=== PATIENT | male | born 1970 | race Caucasian/White ===

== ENCOUNTER 2019-08-31 00:19 | Emergency (ER) | payer OTHER ==
[2019-08-31] MEDS ORDERED: OXYMETAZOLINE 0.05% NASL SPRAY 1 SPRAY BOTTLE NASAL STA (00:31)
[2019-08-31 00:43] VITALS: RESP 18
--- NOTE | 2019-08-31 01:40 | ED ---
General Adult HPI - General Chief complaint: ENT Stated complaint: Nosebleed No Injury Time Seen by Provider: 08/31/19 00:26 Source: patient, family, RN notes reviewed, old records reviewed Mode of arrival: ambulatory Limitations: no limitations - History of Present Illness Initial comments: 48-year-old male patient in [place] complaint epistaxis. Patient reports that he did have rhinitis for the past approximate one week has been blowing his nose a lot. Patient ports that the nosebleed began earlier today, resolved for a short period then returned. Primarily coming out of his right nare. Denies use of blood thinners. Denies any other complaints. Systemic: Pt denies fatigue, fever/chills, rash. Pt denies weakness, night sweats, weight loss. Neuro: Pt denies headache, visual disturbances, syncope or pre-syncope. HEENT: Pt denies ocular discharge or irritation, otalgia, rhinorrhea, pharyngitis or notable lymphadenopathy. Cardiopulmonary: Pt denies chest pain, SOB, heart palpitations, dyspnea on exertion. Abdominal/GI: Pt denies abdominal pain, n/v/d. : Pt denies dysuria, burning w/ urination, frequency/urgency. Denies new onset urinary or bowel incontinence. MSK: Pt denies myalgia, loss of strength or function in extremities. Neuro: Pt denies new onset weakness, paresthesias. - Related Data Allergies Allergy/AdvReac Type Severity Reaction Status Date / Time No Known Allergies Allergy Verified 08/31/19 00:43 Review of Systems ROS Statement: Those systems with pertinent positive or pertinent negative responses have been documented in the HPI. ROS Other: All systems not noted in ROS Statement are negative. Past Medical History Past Medical History: Hyperlipidemia History of Any Multi-Drug Resistant Organisms: None Reported Past Surgical History: No Surgical Hx Reported Past Psychological History: No Psychological Hx Reported Smoking Status: Never smoker Past Alcohol Use History: Daily Past Drug Use History: None Reported General Exam - General Exam Comments Initial Comments: Constitutional: NAD, AOX3, Pt has pleasant affect. HEENT: NC/AT, trachea midline, neck supple, no lymphadenopathy. Posterior pharynx non erythematous, without exudates. External ears appear normal, without discharge. Mucous membranes moist. Eyes PERRLA, EOM intact. There is no scleral icterus. No pallor noted. Anterior epistaxis noted in right FITO. Resolved with Afrin nasal clamp, no active bleeding. No hematoma. Cardiopulmonary: RRR, no murmurs, rubs or gallops, no JVD noted. Lungs CTAB in anterior and posterior alexander. No peripheral edema. Abdominal exam: Abdomen soft and non-distended. Abdomen non-tender to palpation in all 4 quadrants. Bowel sounds active in LLQ. No hepatosplenomegaly. No ecchymosis Neuro: CN II-XII grossly intact. No nuchal rigidity. No raccon eyes, no ruiz sign, no hemotympanum. No cervical spinal tenderness. MSK: No posterior calf tenderness bilaterally, homans sign negative bilaterally. Posterior tibialis and radial pulse +2 bilaterally. Sensation intact in upper and lower extremities. Full active ROM in upper and lower extremities, 5/5 stregnth. Limitations: no limitations Course Vital Signs 08/31/19 08/31/19 08/31/19 00:30 00:53 01:54 Temperature 97.6 F 97.8 F Pulse Rate 91 74 Respiratory 18 18 Rate Blood Pressure 180/116 162/101 153/93 O2 Sat by Pulse 100 98 Oximetry Medical Decision Making - Medical Decision Making 48-year-old male patient with the chief complaint of epistaxis. Patient vital signs stable upon discharge. Physical exam displayed right epistaxis. Resolved with nasal clamp and Afrin. Patient will be discharged with return to ER condition worsens. Case discussed with Dr. Lance. Disposition Clinical Impression: Epistaxis Disposition: HOME SELF-CARE Condition: Stable Instructions (If sedation given, give patient instructions): Nosebleed (ED) Additional Instructions: Patient to adhere to previously discussed treatment plan and will take medication(s) as directed. Patient to follow up with PCP in 1-2 days. Patient to return to ED if symptoms do not improve. If nosebleed recurs use 1 spray of Afrin in each nostril and apply nasal clamp for 30 minutes. If this does not resolve nosebleed return to ER. Is patient prescribed a controlled substance at d/c from ED?: No Referrals: Nonstaff,Physician [Primary Care Provider] - 1-2 days
[2019-08-31 01:56] VITALS: BP 153/93; PULSE 74; TEMP 97.8
== END 2019-08-31 01:55 | disposition home or self-care (01) ==
LOC: EC 00:19
DX: R04.0 Epistaxis (principal)
CPT/HCPCS: 99283

== ENCOUNTER 2019-08-31 03:19 | Emergency (ER) | payer OTHER ==
[2019-08-31 03:35] VITALS: RESP 18; TEMP 97.5
[2019-08-31] MEDS ORDERED: TRANEXAMIC ACID 1,000 MG in SODIUM CHLORIDE 0.9% 100 ML IVPB ONE (03:58)
[2019-08-31] MEDS ORDERED: cloNIDine HCL 0.2 MG TAB PO STA (04:01)
--- NOTE | 2019-08-31 04:09 | ED ---
ENT HPI - General Chief complaint: ENT Stated complaint: Nosebleed-revisit Time Seen by Provider: 08/31/19 03:36 Source: patient Mode of arrival: ambulatory Limitations: no limitations - History of Present Illness Initial comments: Patient's 48-year-old man who presents to be evaluated for epistaxis. Patient's symptoms started initially on plane ride to the area, he was coming to visit family member who had delivered his first grandchild. He was having left sided epistaxis that did stop with direct pressure but recurred. The patient notes that this had been preceded by 1-2 weeks of upper respiratory/sinus type symptoms, including congestion, sinus pressure, and coughing. Patient had been seen here earlier for same and the patient's bleeding had stopped here in the emergency department. He reports that following discharge the bleeding recu rred. He did go home and applied direct pressure but then the bleeding had felt like it was going down the back of his throat and also inserted coming from the right naris. Patient notes that the bleeding has stopped subsequent to arrival here. Patient denies signs or symptoms of anemia or hypovolemia, including no chest pain, palpitations, dyspnea, diaphoresis, lightheadedness or syncope. MD complaint: epistaxis -: hour(s) Location: nose Consistency: constant Improves with: none Worsens with: none - Related Data Allergies Allergy/AdvReac Type Severity Reaction Status Date / Time No Known Allergies Allergy Verified 08/31/19 03:35 Review of Systems ROS Statement: Those systems with pertinent positive or pertinent negative responses have been documented in the HPI. ROS Other: All systems not noted in ROS Statement are negative. Constitutional: Denies: fever, chills Eyes: Denies: eye pain, vision change ENT: Reports: as per HPI, epistaxis, congestion Respiratory: Reports: as per HPI, cough. Denies: dyspnea, wheezes, hemoptysis Cardiovascular: Denies: chest pain, palpitations, syncope Gastrointestinal: Denies: abdominal pain, nausea, vomiting Neurological: Denies: headache Hematological/Lymphatic: Denies: easy bleeding, easy bruising Past Medical History Past Medical History: Hyperlipidemia History of Any Multi-Drug Resistant Organisms: None Reported Past Surgical History: No Surgical Hx Reported Past Psychological History: No Psychological Hx Reported Smoking Status: Never smoker Past Alcohol Use History: Daily Past Drug Use History: None Reported General Exam Limitations: no limitations General appearance: alert, in no apparent distress Head exam: Present: atraumatic, normocephalic Eye exam: Present: normal appearance. Absent: scleral icterus, conjunctival injection ENT exam: Present: normal oropharynx, mucous membranes moist, other (There is no obvious anterior source for epistaxis.) Neck exam: Present: normal inspection, full ROM Respiratory exam: Present: normal lung sounds bilaterally. Absent: respiratory distress, wheezes, rales, rhonchi, stridor Cardiovascular Exam: Present: regular rate, normal rhythm, normal heart sounds. Absent: systolic murmur, diastolic murmur, rubs, gallop GI/Abdominal exam: Present: soft. Absent: tenderness Extremities exam: Present: normal inspection, normal capillary refill. Absent: pedal edema, calf tenderness Back exam: Present: normal inspection. Absent: CVA tenderness (R), CVA tenderness (L) Skin exam: Present: warm, dry, intact, normal color. Absent: rash Course Vital Signs 08/31/19 08/31/19 03:29 05:05 Temperature 97.5 F L Pulse Rate 80 73 Respiratory 18 18 Rate Blood Pressure 142/95 136/87 O2 Sat by Pulse 98 100 Oximetry Medical Decision Making - Lab Data Result diagrams: 08/31/19 04:05 Lab Results 08/31/19 08/31/19 Range/Units 04:05 04:05 WBC 5.9 (3.8-10.6) k/uL RBC 4.21 L (4.30-5.90) m/uL Hgb 13.5 (13.0-17.5) gm/dL Hct 38.3 L (39.0-53.0) % MCV 91.0 (80.0-100.0) fL MCH 32.0 (25.0-35.0) pg MCHC 35.2 (31.0-37.0) g/dL RDW 13.0 (11.5-15.5) % Plt Count 175 (150-450) k/uL Neutrophils % 66 % Lymphocytes % 22 % Monocytes % 6 % Eosinophils % 3 % Basophils % 0 % Neutrophils # 3.9 (1.3-7.7) k/uL Lymphocytes # 1.3 (1.0-4.8) k/uL Monocytes # 0.4 (0-1.0) k/uL Eosinophils # 0.2 (0-0.7) k/uL Basophils # 0.0 (0-0.2) k/uL PT 10.5 (9.0-12.0) sec INR 1.0 (<1.2) APTT 25.2 (22.0-30.0) sec Disposition Clinical Impression: Epistaxis Disposition: HOME SELF-CARE Condition: Good Instructions (If sedation given, give patient instructions): Nosebleed (ED) Is patient prescribed a controlled substance at d/c from ED?: No Referrals: Nonstaff,Physician [Primary Care Provider] - 1-2 days Adalid Rodriguez DO [Doctor of Osteopathic Medicine] - 1-2 days
[2019-08-31 04:26] LABS: Partial Thromboplastin Time 25.2 sec (22.0-30.0); Prothrombin Time 10.5 sec (9.0-12.0)
[2019-08-31 04:32] LABS: Basophils % (A) 0 %; Eosinophils # (A) 0.2 k/uL (0-0.7); Eosinophils % (A) 3 %; HCT 38.3 % (39.0-53.0); HGB 13.5 gm/dL (13.0-17.5); Lymphocytes # (A) 1.3 k/uL (1.0-4.8); Lymphocytes % (A) 22 %; MCHC 35.2 g/dL (31.0-37.0); Mean Platelet Volume 6.3; Monocytes # (A) 0.4 k/uL (0-1.0); Monocytes % (A) 6 %; Neutrophils # (A) 3.9 k/uL (1.3-7.7); Neutrophils % (A) 66 %; Platelet Count 175 k/uL (150-450); RBC 4.21 m/uL (4.30-5.90); WBC 5.9 k/uL (3.8-10.6)
[2019-08-31 05:10] VITALS: BP 136/87; PULSE 73
== END 2019-08-31 05:48 | disposition home or self-care (01) ==
LOC: EC 03:19
DX: R04.0 Epistaxis (principal)
CPT/HCPCS: 36415; 85025; 85610; 85730; 99283